=== PATIENT | female | born 1995 | race Caucasian/White ===

== ENCOUNTER 2018-05-29 11:47 | Emergency (ER) | payer OTHER ==
[~2018-05-29] VITALS: Ht 172.7 cm; Wt 68.0 kg
[~2018-05-29 11:47] MED LIST: CEPHALEXIN250 MG PO; CYCLOBENZAPRINE10 M1 PO; MEFENAMIC ACID250 MG PO; MONONESSA PO; PERCOCET 325 MG1 TA2 PO
[2018-05-29] MEDS ORDERED: BLISOVI 24 FE1 EACH PO (13:05)
--- NOTE | 2018-05-29 13:25 | ED ANKLE/FOOT INJURY COMPLAINT ---
History of Present Illness General Chief Complaint: Lower Extremity Injury Stated Complaint: RIGHT CALF PAIN, X 1 DAY Source: patient Exam Limitations: no limitations Vital Signs & Intake/Output Vital Signs & Intake/Output Vital Signs Date Time Temp Pulse Resp B/P B/P Pulse O2 O2 Flow FiO2 Mean Ox Delivery Rate 05/29 1253 Room Air 05/29 1152 97.9 76 16 110/70 98 Room Air Allergies Coded Allergies: Sulfa (Sulfonamide Antibiotics) (Severe, ANAPHYLAXIS 05/29/18) Reconcile Medications Norethindrone-E.estradiol-Iron (Blisovi 24 Fe Tablet) 1 MG-20 MCG (24)/75 MG (4) TABLET 1 TAB PO DAILY BC (Reported) Triage Note: PT STATSE SHE THINKS SHE OVERSTRECHED HER CALF MUSCLE RIGHT LOWER EXT. AND THEN TRIED TO WALK ON IT AND HER LEG COLLAPSED. Triage Nurses Notes Reviewed? yes : No Patient currently breastfeeds: No HPI: 22-year-old white female presents with sudden onset of pain in the posterior right calf while hyper extending her leg and feeling a sudden pop in the popliteal space this morning. She denies any calf swelling, risk factors for PE or DVT, or any other symptoms. She does report a previous history of plantar fasciitis. Past History Travel History Traveled to [place] past 21 day No Medical History Any Pertinent Medical History? 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 No Review of Systems Review of Systems Constitutional: Reports: no symptoms. Musculoskeletal: Reports: see HPI, muscle pain. Denies: joint pain, joint swelling. All Other Systems: Reviewed and Negative Physical Exam Physical Exam General Appearance: well developed/nourished, no apparent distress, alert, awake Leg/Knee/Thigh Left: soft tissue tenderness, There is tenderness in the right popliteal space and proximal calf without Juan Daniel's sign or edema. Tori's tendon function is normal. NV exam is normal. There are no signs of cellulitis. Neuro/Vascular: normal motor function, normal sensation Tendon: normal tendon function Progress Differential Diagnosis: DVT, sprain, contusion, plantaris muscle/tendon injury Plan of Care: Tylenol and motrin for pain control. KNee immoblizer for comfort. F/U with ortho if not better in one week Departure Departure Time of Disposition: 1323 Disposition: HOME OR SELF CARE Condition: Stable Clinical Impression Primary Impression: Traumatic rupture of right plantaris muscle Qualifiers: Encounter type: initial encounter Qualified Code: S86.111A - Strain of other muscle(s) and tendon(s) of posterior muscle group at lower leg level, right leg, initial encounter Referrals: Jayro Mayorga MD (PCP/Family) Additional Instructions: Use Extra Strength Tylenol along with Motrin 600 mg 3 times a day as needed for pain. You have a plantaris muscle/tendon rupture clinically. Please follow up with the referral orthopedist if any questions. Departure Forms: Customer Survey General Discharge Information
[2018-05-29 13:40] VITALS: BP 102/68
== END 2018-05-29 13:41 ==
LOC: ERH 11:47
DX: S86.111A Strain of other muscle(s) and tendon(s) of posterior muscle group at lower leg level, right leg, initial encounter (principal); X50.9XXA Other and unspecified overexertion or strenuous movements or postures, initial encounter